=== PATIENT | male | born 1990 | race Caucasian/White ===

== ENCOUNTER 2018-03-11 02:38 | Emergency (ER) | payer SELFPAY ==
[2018-03-11 02:49] VITALS: BP 138/86
[2018-03-11 03:47] LABS: APPEARANCE,URINE CLEAR; BILIRUBIN,URINE NEGATIVE (NEGATIVE); COLOR,URINE YELLOW; GLUCOSE, URINE NEGATIVE (NEGATIVE); KETONES,URINE NEGATIVE (NEGATIVE); LEUKOCYTE ESTERASE,URINE NEGATIVE (NEGATIVE); NITRITE,URINE NEGATIVE (NEGATIVE); PROTEIN,URINE NEGATIVE (NEGATIVE); URINE SPECIFIC GRAVITY 1.019
[2018-03-11 04:04] LABS: ABSOLUTE BASOPHILS # (AUTO) 0.1 10^3/uL (0.0-0.2); ABSOLUTE EOSINOPHILS # (AUTO) 0.4 10^3/uL (0.0-0.6); ABSOLUTE LYMPHOCYTES (AUTO) 2.2 10^3/uL (0.5-4.7); ABSOLUTE MONOCYTES (AUTO) 0.6 10^3/uL (0.1-1.4); ABSOLUTE NEUT (AUTO) 4.3 10^3/uL (1.7-8.2); EOSINOPHILS % (AUTO) 5.1 % (0-6); HEMATOCRIT 40.3 % (37.9-51.0); HEMOGLOBIN 13.9 g/dL (13.5-17.0); LYMPHOCYTES % (AUTO) 29.4 % (13-45); MEAN CORPUSCULAR HEMOGLOBIN 29.9 pg (27.0-33.4); MEAN CORPUSCULAR HGB CONC 34.5 g/dL (32.0-36.0); MEAN CORPUSCULAR VOLUME 86 fl (80-97); MONOCYTES % (AUTO) 7.7 % (3-13); PLATELET COUNT 182 10^3/uL (150-450); RED BLOOD COUNT 4.66 10^6/uL (4.35-5.55); RED CELL DISTRIBUTION WIDTH 13.3 % (11.5-14.0); SEGMENTED NEUTROPHILS % (AUTO) 56.8 % (42-78); TOTAL CELLS COUNTED % (AUTO) 100 %; WHITE BLOOD COUNT 7.6 10^3/uL (4.0-10.5)
[2018-03-11 04:17] LABS: ALANINE AMINOTRANSFERASE 29 U/L (21-72); ALBUMIN 4.5 g/dL (3.5-5.0); ALKALINE PHOSPHATASE 59 U/L (38-126); ANION GAP 10 (5-19); ASPARTATE AMINO TRANSFERASE 22 U/L (17-59); BILIRUBIN,DIRECT 0.3 mg/dL (0.0-0.4); BILIRUBIN,TOTAL 0.4 mg/dL (0.2-1.3); BLOOD UREA NITROGEN 14 mg/dL (7-20); CALCIUM 10.2 mg/dL (8.4-10.2); CARBON DIOXIDE 31 mmol/L (22-30); CHLORIDE 103 mmol/L (98-107); GLUCOSE 98 mg/dL (75-110); POTASSIUM 4.3 mmol/L (3.6-5.0); TOTAL PROTEIN 7.2 g/dL (6.3-8.2)
--- NOTE | 2018-03-11 04:50 | RADIOLOGY REPORT (SQ) ---
EXAM DESCRIPTION: Right upper abdominal ultrasound. CLINICAL HISTORY: ruq pain, right upper back pain COMPARISON: None. TECHNIQUE: Real-time sonographic images of the right upper abdomen were obtained using a curved multihertz transducer. FINDINGS: Pancreas: The visualized portions of the pancreas are unremarkable. Vascular: The visualized portions of the aorta and IVC are unremarkable. Liver: The liver has normal contour and increased echogenicity. Hepatopedal flow in the portal vein. The common bile duct measures 0.2 cm. Gallbladder: The gallbladder has a normal appearance. No gallstones identified. No wall thickening or pericholecystic fluid. Right Kidney: The right kidney measures 11.2 cm in length. No hydronephrosis, solid renal mass, or shadowing calculi. IMPRESSION: 1. No gallstones. 2. Hepatic steatosis.
[2018-03-11] MEDS ORDERED: SUCRALFATE 1 GM TABLET PO ONE (04:58)
[2018-03-11] MEDS ORDERED: FAMOTIDINE 20 MG TABLET PO ONE (04:58)
--- NOTE | 2018-03-11 04:58 | ER Document Report ---
ED GI/ - General Chief Complaint: Flank Pain Stated Complaint: FLANK PAIN Time Seen by Provider: 03/11/18 03:31 Mode of Arrival: Ambulatory Information source: Patient Notes: Pt is a 27 year old male who presents to the ER today for right upper back pain , occasional epigastric pain that feels like "fire going to my throat" and right upper abdominal pain x 1 week, but worse over the past day. Pt states that he takes a lot of advil and tylenol due to chronic teeth caries and pain. He does not go to a dentist. He still has his gallbladder. He denies dysuria, hematuria, nausea, vomiting or diarrhea. Pt has a history of kidney stones and states this does not feel like that. TRAVEL OUTSIDE OF THE [place] IN LAST 30 DAYS: No - Related Data Allergies/Adverse Reactions: Penicillins Allergy (Verified 10/17/15 01:59) Past Medical History - General Information source: Patient - Social History Smoking Status: Unknown if Ever Smoked Family History: Reviewed & Not Pertinent Renal/ Medical History: Reports: Hx Kidney Stones - Immunizations Hx Diphtheria, Pertussis, Tetanus Vaccination: Yes Review of Systems - Review of Systems Constitutional: No symptoms reported EENT: No symptoms reported Cardiovascular: No symptoms reported Respiratory: No symptoms reported Gastrointestinal: See HPI Genitourinary: No symptoms reported Male Genitourinary: No symptoms reported Musculoskeletal: No symptoms reported Skin: No symptoms reported Hematologic/Lymphatic: No symptoms reported Neurological/Psychological: No symptoms reported Physical Exam - Vital signs Vitals: Temp Pulse Resp BP Pulse Ox 98.5 F 89 18 138/86 H 98 03/11/18 02:47 03/11/18 02:47 03/11/18 02:47 03/11/18 02:47 03/11/18 02:47 - Notes Notes: PHYSICAL EXAMINATION: GENERAL: in no acute distress. HEAD: Atraumatic, normocephalic. EYES: Pupils equal round and reactive to light, extraocular movements intact, sclera anicteric, conjunctiva are normal. ENT: ear canals clear of erythema, foreign body, TMs with good bony landmarks bilaterally, pearly valadez, nares patent, oropharynx without erythema or enlarged tonsils, no exudate, mucous membranes moist, airway patent NECK: Normal range of motion, supple without lymphadenopathy LUNGS: CTAB and equal. No wheezes rales or rhonchi. HEART: Regular rate and rhythm without murmurs ABDOMEN: Soft, no tenderness No guarding, no rebound BACK: no vertebral tenderness, normal ROM GI/: no CVA tenderness EXTREMITIES: Normal range of motion, no pitting edema. No cyanosis. NEUROLOGICAL: Cranial nerves grossly intact. Normal sensory/motor exams. PSYCH: Normal mood, normal affect. SKIN: Warm, Dry, normal turgor, no rashes or lesions noted Course - Re-evaluation Re-evalutation: 03/11/18 22:14 labwork unremarkable today, RUQ ultrasound negative for any acute pathology, pt placed on carafate and prilosec, advised not to take any more advil. - Vital Signs Vital signs: Temp Pulse Resp BP Pulse Ox 98.5 F 89 18 138/86 H 98 03/11/18 02:47 03/11/18 02:47 03/11/18 02:47 03/11/18 02:47 03/11/18 02:47 - Laboratory Result Diagrams: 03/11/18 03:13 03/11/18 03:13 Laboratory results interpreted by me: 03/11/18 03/11/18 03:13 03:37 Carbon Dioxide 31 H Urine Urobilinogen 2.0 H Discharge - Discharge Clinical Impression: Right-sided back pain Qualifiers: Back pain location: back pain in unspecified location Chronicity: acute Qualified Code(s): M54.9 - Dorsalgia, unspecified Condition: Stable Disposition: HOME, SELF-CARE Additional Instructions: Return immediately for any new or worsening symptoms. Follow up with primary care provider, call tomorrow to make followup appointment. Prescriptions: Omeprazole Magnesium [Prilosec Otc] 20 mg PO BID #40 tablet. Sucralfate [Carafate 1 gm Tablet] 1 gm PO ACHS #40 tablet Forms: Return to Work
== END 2018-03-11 05:18 | disposition home or self-care (01) ==
LOC: ER 02:38
DX: M54.89 Other dorsalgia (principal); R10.13 Epigastric pain; R10.11 Right upper quadrant pain; K02.9 Dental caries, unspecified; K08.89 Other specified disorders of teeth and supporting structures; Z88.0 Allergy status to penicillin
CPT/HCPCS: 36415; 76705; 80053; 81001; 83690; 85025; 99284

== ENCOUNTER 2019-01-24 19:36 | Emergency (ER) | payer BC ==
--- NOTE | 2019-01-24 20:26 | ER Document Report ---
ED Medical Screen (RME) - General Chief Complaint: Cold Symptoms Stated Complaint: COUGH Time Seen by Provider: 01/24/19 20:12 Mode of Arrival: Ambulatory Information source: Patient Notes: Patient is an otherwise healthy 28-year-old male who presents to the emergency department with multiple vague symptoms. Patient reports that the last few weeks he has had difficulty urinating but denies dysuria. He also reports pain in his right upper quadrant and right arm with tingling and numbness. Patient also reports that he had a few episodes of vomiting that he states had blood in it. He denies any fevers or diarrhea. Exam: Patient alert, oriented, answering all questions and in no acute distress. Abdomen soft, nontender with no guarding and no rebound. I have greeted and performed a rapid initial assessment of this patient. A comprehensive ED assessment and evaluation of the patient, analysis of test results and completion of the medical decision making process will be conducted by additional ED providers. Dictation of this chart was performed using voice recognition software; therefore, there may be some unintended grammatical errors. TRAVEL OUTSIDE OF THE [place] IN LAST 30 DAYS: No - Related Data Allergies/Adverse Reactions: Penicillins Allergy (Verified 10/17/15 01:59) Past Medical History - Social History Chew tobacco use (# tins/day): No Frequency of alcohol use: None Drug Abuse: None Renal/ Medical History: Reports: Hx Kidney Stones. Denies: Hx Peritoneal Dialysis - Immunizations Hx Diphtheria, Pertussis, Tetanus Vaccination: Yes Physical Exam - Vital signs Vitals: Temp Pulse Resp BP Pulse Ox 98.9 F 101 H 17 146/78 H 98 01/24/19 19:45 01/24/19 19:45 01/24/19 19:45 01/24/19 19:45 01/24/19 19:45 Course - Vital Signs Vital signs: Temp Pulse Resp BP Pulse Ox 98.9 F 101 H 17 146/78 H 98 01/24/19 19:45 01/24/19 19:45 01/24/19 19:45 01/24/19 19:45 01/24/19 19:45
[2019-01-24 20:53] LABS: APPEARANCE,URINE CLEAR; BILIRUBIN,URINE NEGATIVE (NEGATIVE); COLOR,URINE STRAW; GLUCOSE, URINE NEGATIVE (NEGATIVE); KETONES,URINE NEGATIVE (NEGATIVE); LEUKOCYTE ESTERASE,URINE NEGATIVE (NEGATIVE); NITRITE,URINE NEGATIVE (NEGATIVE); PROTEIN,URINE NEGATIVE (NEGATIVE); URINE SPECIFIC GRAVITY 1.005; UROBILINOGEN,URINE NEGATIVE mg/dL (<2.0)
[2019-01-24 21:12] LABS: ABSOLUTE EOSINOPHILS # (AUTO) 0.2 10^3/uL (0.0-0.6); ABSOLUTE LYMPHOCYTES (AUTO) 1.5 10^3/uL (0.5-4.7); ABSOLUTE MONOCYTES (AUTO) 0.5 10^3/uL (0.1-1.4); ABSOLUTE NEUT (AUTO) 4.6 10^3/uL (1.7-8.2); BASOPHILS % (AUTO) 0.5 % (0-2); EOSINOPHILS % (AUTO) 3.1 % (0-6); HEMOGLOBIN 15.1 g/dL (13.5-17.0); LYMPHOCYTES % (AUTO) 21.9 % (13-45); MEAN CORPUSCULAR HEMOGLOBIN 29.8 pg (27.0-33.4); MEAN CORPUSCULAR HGB CONC 34.3 g/dL (32.0-36.0); MEAN CORPUSCULAR VOLUME 87 fl (80-97); MONOCYTES % (AUTO) 7.5 % (3-13); PLATELET COUNT 238 10^3/uL (150-450); RED BLOOD COUNT 5.06 10^6/uL (4.35-5.55); RED CELL DISTRIBUTION WIDTH 12.7 % (11.5-14.0); TOTAL CELLS COUNTED % (AUTO) 100 %; WHITE BLOOD COUNT 6.9 10^3/uL (4.0-10.5)
[2019-01-24 21:29] LABS: ALANINE AMINOTRANSFERASE 57 U/L (21-72); ALBUMIN 4.7 g/dL (3.5-5.0); ALKALINE PHOSPHATASE 83 U/L (38-126); ANION GAP 9 (5-19); ASPARTATE AMINO TRANSFERASE 34 U/L (17-59); BILIRUBIN,DIRECT 0.2 mg/dL (0.0-0.4); BILIRUBIN,TOTAL 0.4 mg/dL (0.2-1.3); BLOOD UREA NITROGEN 9 mg/dL (7-20); CALCIUM 10.6 mg/dL (8.4-10.2); CARBON DIOXIDE 33 mmol/L (22-30); CHLORIDE 100 mmol/L (98-107); GLUCOSE 125 mg/dL (75-110); POTASSIUM 4.1 mmol/L (3.6-5.0); SODIUM 141.7 mmol/L (137-145); TOTAL PROTEIN 8.1 g/dL (6.3-8.2)
--- NOTE | 2019-01-24 23:32 | RADIOLOGY REPORT (SQ) ---
EXAM DESCRIPTION: XR CHEST 2 VIEWS COMPLETED DATE/TME: 01/24/2019 22:56 CLINICAL HISTORY: cough COMPARISON: None FINDINGS: Cardiac silhouette is within normal limits. There is no focal parenchymal or pleural disease. There is no acute osseous process visualized. IMPRESSION: No evidence of acute cardiopulmonary disease.
--- NOTE | 2019-01-25 00:49 | ER Document Report ---
ED General - General Chief Complaint: Cold Symptoms Stated Complaint: COUGH Time Seen by Provider: 01/24/19 20:12 Mode of Arrival: Ambulatory Cannot obtain history due to: Other - Poor historian Notes: Patient is a 28-year-old male with a past medical history of anxiety, depression, insomnia who presents with multiple concerns. The patient states that he has had paresthesias of his right arm, nausea, bladder spasms, urinary frequency followed by hesitancy, has had an episode of coughing today when she coughed up some blood. States that the symptoms have been varying in intensity duration and can level of concern. Denies a history of similar symptoms in the past. Has not seen his primary doctor regarding the above concerns. He has not had fever. Denies focal weakness or loss of sensation. Denies headache or confusion. Nothing seems to improve or worsen his symptoms. TRAVEL OUTSIDE OF THE [place] IN LAST 30 DAYS: No - Related Data Allergies/Adverse Reactions: Penicillins Allergy (Verified 10/17/15 01:59) Past Medical History - General Information source: Patient - Social History Smoking Status: Current Every Day Smoker Chew tobacco use (# tins/day): No Frequency of alcohol use: None Drug Abuse: None Lives with: Family Family History: Reviewed & Not Pertinent Patient has suicidal ideation: No Patient has homicidal ideation: No Renal/ Medical History: Reports: Hx Kidney Stones. Denies: Hx Peritoneal Dialysis - Immunizations Hx Diphtheria, Pertussis, Tetanus Vaccination: Yes Review of Systems - Review of Systems Notes: Constitutional: Negative for fever. HENT: Negative for sore throat. Eyes: Negative for visual changes. Cardiovascular: Negative for chest pain. Positive for cough Respiratory: Negative for shortness of breath. Gastrointestinal: Negative for abdominal pain, vomiting or diarrhea. Genitourinary: Positive for urinary frequency and hesitancy Musculoskeletal: Negative for back pain. Skin: Negative for rash. Neurological: Negative for headaches, weakness or numbness. 10 point ROS negative except as marked above and in HPI. Physical Exam - Vital signs Vitals: Temp Pulse Resp BP Pulse Ox 98.9 F 101 H 17 146/78 H 98 01/24/19 19:45 01/24/19 19:45 01/24/19 19:45 01/24/19 19:45 01/24/19 19:45 Interpretation: Hypertensive - Resolved at the time of my assessment, Tachycardic Notes: PHYSICAL EXAMINATION: GENERAL: Well-appearing, well-nourished and in no acute distress. HEAD: Atraumatic, normocephalic. EYES: Pupils equal round and reactive to light, extraocular movements intact, sclera anicteric, conjunctiva are normal. ENT: nares patent, oropharynx clear without exudates. Moist mucous membranes. NECK: Normal range of motion, supple without lymphadenopathy LUNGS: Breath sounds clear to auscultation bilaterally and equal. No wheezes rales or rhonchi. HEART: Regular rate and rhythm without murmurs ABDOMEN: Soft, nontender, normoactive bowel sounds. No guarding, no rebound. No masses appreciated. EXTREMITIES: Normal range of motion, no pitting or edema. No cyanosis. NEUROLOGICAL: Face symmetric. Tongue protrudes midline. Extraocular motions intact. Pupils are 2 mm and equally reactive. Normal speech, normal gait. 5 out of 5 strength in both the distal and proximal upper and lower extremities bilaterally. Sensation is grossly intact throughout. Finger to nose testing normal. Pronator drift normal. PSYCH: Normal mood, normal affect. SKIN: Warm, Dry, normal turgor, no rashes or lesions noted. Course - Re-evaluation Re-evalutation: 01/25/19 00:48 Patient presents with multiple vague complaints that did not appear to be concerning for any acute life-threatening pathology. Vitals are within normal limits at triage and at time of discharge. Physical examination is unremarkable. Patient has tolerated oral intake without difficulty. Patient was not noted to be in distress at any point during their ER visit. At this time, based on the reassuring evaluation, I do not suspect an acute CA, pulmonary embolus, aortic dissection, acute intra-abdominal pathology, stroke, or sepsis.Will discharge with return precautions and follow-up recommendations. Verbal discharge instructions given a the bedside and opportunity for questions given. Medication warnings reviewed. Patient is in agreement with this plan and has verbalized understanding of return precautions and the need for primary care follow-up in the next 24-72 hours. - Vital Signs Vital signs: Temp Pulse Resp BP Pulse Ox 97.8 F 86 18 130/77 H 98 01/25/19 01:03 01/25/19 01:03 01/25/19 01:03 01/25/19 01:03 01/25/19 01:03 - Laboratory Result Diagrams: 01/24/19 20:40 01/24/19 20:40 Laboratory results interpreted by me: 01/24/19 20:40 Carbon Dioxide 33 H Glucose 125 H Calcium 10.6 H - Diagnostic Test Radiology reviewed: Image reviewed, Reports reviewed Radiology results interpreted by me: 01/25/19 04:11 Chest x-ray: No acute infiltrate or pneumothorax Discharge - Discharge Clinical Impression: Multiple complaints, Urinary frequency, Cough, Paresthesias Condition: Good Disposition: HOME, SELF-CARE Additional Instructions: Please return to the emergency room immediately if you experience any concerning symptoms including high fevers, severe headache, chest pain, difficulty breathing, abdominal pain, slurred speech, numbness or weakness in your arms or legs, or any other symptom that concerns you.
[2019-01-25 01:06] VITALS: BP 130/77
== END 2019-01-25 01:08 | disposition home or self-care (01) ==
LOC: ER 19:36
DX: R04.2 Hemoptysis (principal); R20.2 Paresthesia of skin; R11.0 Nausea; N32.89 Other specified disorders of bladder; R35.0 Frequency of micturition; R39.11 Hesitancy of micturition; F17.200 Nicotine dependence, unspecified, uncomplicated; Z88.0 Allergy status to penicillin
CPT/HCPCS: 36415; 71046; 80053; 81001; 85025; 99283